=== PATIENT | male | born 2000 | race Caucasian/White ===

== ENCOUNTER 2022-05-13 12:14 | Emergency (ER) | payer OTHER ==
[~2022-05-13] VITALS: Ht 175.3 cm; Wt 78.3 kg
[2022-05-13 15:13] LABS: GC DNA AMPLIFICATION NEGATIVE (NEGATIVE)
[2022-05-13 15:28] VITALS: BP 128/61
== END 2022-05-13 15:52 | disposition home or self-care (01) ==
LOC: M ED 13:12
DX: N50.812 Left testicular pain (principal); Z87.442 Personal history of urinary calculi; Z86.19 Personal history of other infectious and parasitic diseases

== ENCOUNTER 2023-04-27 18:26 | Emergency (ER) | payer OTHER ==
[~2023-04-27] VITALS: Ht 175.3 cm; Wt 85.1 kg
[2023-04-27 20:56] VITALS: BP 137/89; TEMP 97; O2SAT 98
== END 2023-04-27 21:08 | disposition home or self-care (01) ==
LOC: M ED 18:26
DX: S62.524A Nondisplaced fracture of distal phalanx of right thumb, initial encounter for closed fracture (principal); S60.011A Contusion of right thumb without damage to nail, initial encounter; Z88.1 Allergy status to other antibiotic agents; Y93.B3 Activity, free weights; Y92.9 Unspecified place or not applicable; Y99.8 Other external cause status; X58.XXXA Exposure to other specified factors, initial encounter

== ENCOUNTER → 2023-06-11 | Outpatient (CLI) | payer OTHER | LOC: M OUTALCOH 08:00 | PROVIDERS: ATTEND Psychiatry & Neurology Psychiatry | DX: Z03.89 Encounter for observation for other suspected diseases and conditions ruled out (principal) ==

== ENCOUNTER 2023-08-01 15:46 | Emergency (ER) | payer OTHER ==
[~2023-08-01] VITALS: Ht 175.3 cm; Wt 77.3 kg
[2023-08-01 22:48] VITALS: BP 134/66; TEMP 98.6; O2SAT 98
== END 2023-08-01 22:51 | disposition home or self-care (01) ==
LOC: M ED 15:46
DX: S63.602A Unspecified sprain of left thumb, initial encounter (principal); W23.2XXA Caught, crushed, jammed or pinched between a moving and stationary object, initial encounter; K57.92 Diverticulitis of intestine, part unspecified, without perforation or abscess without bleeding; Y92.9 Unspecified place or not applicable; Y93.89 Activity, other specified; Y99.1 Military activity